=== PATIENT | male | born 1960 | race American Indian/Alaskan Native ===

== ENCOUNTER 2018-05-18 11:39 | Outpatient (CLI) | payer BC ==
--- NOTE | 2018-05-18 12:47 | XRay Report ---
CERVICAL SPINE SERIES THREE VIEWS: 05/18/18 11:39:00 CLINICAL: Neck pain. FINDINGS: The cervical spine is unusually straightened with loss of the normal cervical lordosis. Normal vertebral body height, alignment and disk spaces. No fracture or subluxation. Normal odontoid and C1. Normal airway and soft tissues. IMPRESSION: Normal except for unusual straightening which may be response to pain.
== END 2018-05-18 11:40 | disposition home or self-care (01) ==
LOC: SPVIMAG 11:39
DX: M54.2 Cervicalgia (principal)
CPT/HCPCS: 72040

== ENCOUNTER 2021-09-23 08:33 | Day surgery (SDC) | payer BC ==
[2021-09-23] MEDS ORDERED: LACTATED RINGERS 1,000 ML ONE (09:00)
--- NOTE | 2021-09-23 09:28 | Anesthesia Consultation ---
Anesthesia Consult and Med Hx Date of service: 09/23/21 - Airway Anesthetic Teeth Evaluation: Partials ROM Head & Neck: Adequate Mental/Hyoid Distance: Adequate Mallampati Class: Class III Intubation Access Assessment: Probably Good - Pre-Operative Health Status ASA Pre-Surgery Classification: ASA2 Proposed Anesthetic Plan: General - Pulmonary Hx Smoking: Yes Hx Sleep Apnea: No - Central Nervous System Hx Psychiatric Problems: No - Gastrointestinal Hx Gastroesophageal Reflux Disease: No - Hematic Hx Sickle Cell Disease: No - Other Systems Hx Alcohol Use: Yes (Occas) Hx Cancer: No Hx Obesity: No
--- NOTE | 2021-09-23 09:28 | Anesthesia Day of Surgery ---
Anesthesia Day of Surgery - Day of Surgery Patient Examined: Yes Patient H&P Reviewed: Yes Patient is NPO: Yes
[2021-09-23] MEDS ORDERED: LACTATED RINGERS 1,000 ML IV SCH (09:30)
[2021-09-23] MEDS ORDERED: HYDROmorphone 0.5 MG/0.5 ML INJ IV PRN ×2 (10:00)
[2021-09-23] MEDS ORDERED: ONDANSETRON 4 MG/2 ML INJ IV PRN (10:00)
[2021-09-23] MEDS ORDERED: ceFAZolin/Water 2 GM/20 ML 2 GM/20 ML SYRINGE IV ONE (11:20)
[2021-09-23] MEDS ORDERED: LIDOCAINE MPF (2%) 20 MG/1 ML VIAL 5 ML ONE (11:23)
[2021-09-23] MEDS ORDERED: propofoL 200 MG/20 ML VIAL IV ONE (11:23)
[2021-09-23] MEDS ORDERED: fentaNYL 100 MCG/2 ML INJ ONE (11:23)
[2021-09-23] MEDS ORDERED: MIDAZOLAM 2 MG/2 ML INJ ONE (11:23)
[2021-09-23] MEDS ORDERED: WATER FOR IRRIG STERILE 2000 ML IR ONE (12:04)
--- NOTE | 2021-09-23 12:18 | Short Stay Summary ---
Short Stay Documentation Date of service: 09/23/21 - History H&P: obtained from office - Allergies and Medications Current Medications: Allergies No Known Allergies Allergy (Unverified 09/20/21 11:23) Home Medications Medication Instructions Recorded Confirmed Last Taken Type Sulfamethoxazole-Tmp Ds Tablet 800 mg PO BID 09/23/21 09/23/21 09/22/21 17:00 History Active Medications Cefazolin Sodium (Cefazolin/Sterile Water 2 Gm/20 Ml Syringe) 2 gm IV PREOP NR Stop: 09/23/21 20:00 Hydromorphone HCl (Hydromorphone 0.5 Mg/0.5 Ml Inj) 0.25 mg IV Q10MIN PRN PRN Reason: Pain, Moderate (4-6) Stop: 09/23/21 17:00 Hydromorphone HCl (Hydromorphone 0.5 Mg/0.5 Ml Inj) 0.5 mg IV Q10MIN PRN PRN Reason: Pain , Severe (7-10) Stop: 09/23/21 17:00 Lactated Ringer's (Lactated Ringers) 1,000 mls @ 125 mls/hr IV DIRECT ALFONSO Ondansetron HCl (Ondansetron 4 Mg/2 Ml Inj) 4 mg IV ONCE PRN PRN Reason: Nausea And Vomiting Stop: 09/23/21 14:00 - Brief post op/procedure progress note Date of procedure: 09/23/21 Pre-op diagnosis: BPH , elevated psa 6 Post-op diagnosis: same Procedure: CYSTO, RPG, PUS 50CC, 12 CORE BX Surgeon: MADYSON MIR Estimated blood loss: minimal Pathology: list (PROSTATE CORES) Specimen disposition: to lab - Hospital course Hospital course: PT TAKING BACTRIJERMAN CORBETT ON CHART - Disposition Condition at discharge: Stable Disposition: 01 HOME / SELF CARE / HOMELESS Short Stay Discharge Plan Follow up with: KANWAL ZEPEDA MD [Primary Care Provider] - 7 Days
[2021-09-23] MEDS ORDERED: ceFAZolin/STERILE WATER 2 GM/20 ML SYRINGE IV NR (12:20)
--- NOTE | 2021-09-23 13:14 | Operative Report ---
DATE OF SURGERY: 09/23/2021 PREOPERATIVE DIAGNOSES: Elevated PSA of 6, benign prostatic hypertrophy. POSTOPERATIVE DIAGNOSES: Elevated PSA of 6, benign prostatic hypertrophy. PROCEDURES: Cystoscopy, bilateral retrograde pyelograms, transrectal ultrasound (51 grams) and biopsy of prostate 12 core. SURGEON: Lalito Restrepo MD ANESTHESIA: General. ESTIMATED BLOOD LOSS: Minimal. FLUIDS: Crystalloid. COMPLICATIONS: No complications. INDICATIONS: This patient is a 60-year-old gentleman, seen in the office for an elevated PSA of 6. We repeated it, it was 6. He presents now for a prostate biopsy, did have some mild voiding dysfunction as well. Risks, benefits, complications were explained to the patient. DESCRIPTION OF PROCEDURE: The patient was taken to the operative suite, placed in a supine position. After adequate general anesthesia, was placed in the dorsal lithotomy position, prepped and draped in a sterile fashion. Pancystourethroscopy was performed with a 22-Japanese Storz cystoscope, no urethral abnormalities. Prostate did display moderate trilobar obstruction with a large median lobe. Bladder, no tumors or stones were noted. Both ureteral orifices in normal position. He did have some diffuse trabeculation. Bilateral retrograde pyelograms were obtained with an 8-Japanese Kelsi catheter and 8 mL of contrast. No filling defects or obstruction. Next, using a transrectal ultrasound and probe, realtime imaging was obtained in a biplanar fashion. No lesions could be appreciated. Measurements revealed 51 grams, 12-core biopsies starting at the base, mid and apex of the prostate. The patient tolerated the procedure well. Rectal exam was benign. He was extubated and taken to recovery room in stable condition. He will go home on Bactrim and [place]. TID: [id number] RECEIPT: [id number] CATINA/OLIVA/JONAH
[2021-09-23 13:56] VITALS: BP 124/78
--- NOTE | 2021-09-23 14:08 | Post Anesthesia Evaluation ---
- Post Anesthesia Evaluation Patient Participated: Yes Airway Patent: Yes Stable Respiratory Function: Yes Nausea/Vomiting: No Temp > 96.8F: Yes Pain Manageable: Yes Adequeate Hydration: Yes Anesthesia Complications: No Block Receding Appropriately: Not Applicable Patient on Ventilator: No
--- NOTE | 2021-09-23 14:56 | Fluoroscopy Report ---
FLUOROSCOPY RETROGRADE UROGRAPHY INDICATION: CYSTOSCOPY AND PROSTATE BX. COMPARISON: None. IMPRESSION: 8 seconds of fluoroscopy time was provided by radiology during retrograde urography. 3 fluoroscopic images are presented demonstrating contrast agent throughout both renal collecting syste ms. No filling defect or abnormal dilatation is appreciated. Please correlate with the procedural rep ort from neurology. Signer Name: Ricardo Carrillo Jr, MD Signed: 09/23/2021 2:49 PM Workstation Name: [id number]
--- NOTE | 2021-09-23 15:07 | Ultrasound Report ---
Ultrasound Transrectal Technique: Intraoperative ultrasound guidance was provided. Findings/Impression: Intraoperative ultrasound guidance for prostate biopsy. Prostate volume of 54.2 mL. Please see procedure report for further details. Signer Name: Jakob Montero MD Signed: 09/23/2021 3:02 PM Workstation Name: [id number]
== END 2021-09-23 13:45 | disposition home or self-care (01) ==
LOC: OR 08:33
PROVIDERS: ATTEND Urology
DX: N40.0 Benign prostatic hyperplasia without lower urinary tract symptoms (principal); F17.210 Nicotine dependence, cigarettes, uncomplicated; Z79.899 Other long term (current) drug therapy; Z72.89 Other problems related to lifestyle; Z98.890 Other specified postprocedural states
CPT/HCPCS: 52005; 55700; 74420; 76872; 88305; 88344; C1758; J0690; J2250; J2704; J3010; J7120; Q9967

== ENCOUNTER 2021-12-02 09:29 | Outpatient (CLI) | payer BC ==
--- NOTE | 2021-12-02 14:14 | Vascular Lab Report ---
DUPLEX DOPPLER LOWER EXTREMITY ARTERIAL, BILATERAL INDICATION / CLINICAL INFORMATION: M79.606 PAIN IN LEG,UNSPECIFIED. TECHNIQUE: Arterial duplex examination of both lower extremities performed using B-mode, color flow a nd spectral Doppler assessment. FINDINGS: RIGHT: Common Femoral Artery: PSV 89 cm/sec. Triphasic waveform. Proximal SFA: PSV 114 cm/sec. Triphasic waveform. Mid SFA: PSV 108 cm/sec. Triphasic waveform. Distal SFA: PSV 76 cm/sec. Triphasic waveform. Popliteal Artery: PSV 70 cm/sec. Triphasic waveform. Posterior Tibial Artery: PSV 87 cm/sec. Biphasic waveform. Dorsalis Pedis Artery: PSV 26 cm/sec. Biphasic waveform. LEFT: Common Femoral Artery: PSV 107 cm/sec. Triphasic waveform. Proximal SFA: PSV 128 cm/sec. Triphasic waveform. Mid SFA: PSV 141 cm/sec. Triphasic waveform. Distal SFA: PSV 78 cm/sec. Triphasic waveform. Popliteal Artery: PSV 66 cm/sec. Triphasic waveform. Posterior Tibial Artery: PSV 58 cm/sec. Triphasic waveform. Dorsalis Pedis Artery: PSV 19 cm/sec. Biphasic waveform. ADDITIONAL FINDINGS: None. RIGHT BREANA: Not calculated. LEFT BREANA: Not calculated. IMPRESSION: 1. Mild atherosclerotic calcification is noted bilaterally. There is transition to biphasic waveforms in both lower extremities suggesting crural artery disease. Ankle-Brachial Index (BREANA): - Calcified arteries > 1.4 - Normal = 0.9-1.4 - Mild PAD = 0.7-0.89 - Moderate PAD = 0.51-0.69 - Severe PAD < 0.5 Doppler Waveform: - Triphasic is normal. - Biphasic is abnormal if clear transition from triphasic signal along vascular tree. - Monophasic is abnormal. Scribed by: Jaelyn Saunders RDMS, RVT, RMSKS Scribed: 12/02/2021 12:31 PM I have reviewed the images, agree with this report, and edited this report as needed. Signer Name: Girma Hester MD Signed: 12/02/2021 2:10 PM Workstation Name: [id number]
== END 2021-12-02 09:30 | disposition home or self-care (01) ==
LOC: VAS 09:29
PROVIDERS: ATTEND Family Medicine
DX: I70.213 Atherosclerosis of native arteries of extremities with intermittent claudication, bilateral legs (principal)
CPT/HCPCS: 93925